=== PATIENT | male | born 1935 | race African-American/Black ===

== ENCOUNTER 2021-08-30 12:52 | Emergency (ER) | payer BC, MEDICAID ==
[~2021-08-30] VITALS: Ht 185.4 cm; Wt 81.6 kg
[2021-08-30] MEDS ORDERED: IBUPROFEN 400MG TABLET PO ONE (14:15)
[2021-08-30] MEDS ORDERED: HYDROCODONE/ACETAMINOPHEN 5/325MG TABLET PO ONE (15:15)
[2021-08-30] MEDS ORDERED: IBUP-2028 MT (15:15)
[2021-08-30] MEDS ORDERED: HYDR-4001 MT (15:15)
[2021-08-30 15:46] VITALS: BP 156/84
== END 2021-08-30 16:02 | disposition home or self-care (01) ==
LOC: ER 12:52
DX: I10 Essential (primary) hypertension (principal); S42.342A Displaced spiral fracture of shaft of humerus, left arm, initial encounter for closed fracture; W01.0XXA Fall on same level from slipping, tripping and stumbling without subsequent striking against object, initial encounter; Y93.89 Activity, other specified; Y92.89 Other specified places as the place of occurrence of the external cause; Y99.8 Other external cause status
CPT/HCPCS: 73030; 73060; 99284; L3670